=== PATIENT | male | born 1985 | race Caucasian/White ===

== ENCOUNTER 2021-12-02 09:24 | Outpatient (CLI) | payer BC, SELFPAY ==
--- NOTE | 2021-12-02 09:15 | CRLHL7_ITS ---
For Patients: As a result of the Century Cures Act, medical imaging exams and procedure reports are released immediately into your electronic medical record. You may view this report before your referring provider. If you have questions, please contact your health care provider. Technique: Double-contrast upper GI performed after the uneventful administration of effervescent crystals and thick barium followed by thin barium. Fluoroscopy time 1 minutes 45 seconds. Indication: Laryngeal-Pharyngeal Esophageal Reflux Comparison: None. Findings: Swallowing mechanism: Normal. Esophageal motility: Normal. Gastroesophageal reflux: None. Hernia: None. Esophagus, stomach and duodenal bulb mucosa: Normal mucosa. No stricture or mass. Impression: Normal double-contrast upper GI. Dictated by Kingston Grimes MD @ 12/02/2021 12:38:55 PM (Electronically Signed)
== END 2021-12-02 09:25 | disposition home or self-care (01) ==
LOC: RAD 09:26
PROVIDERS: PCP Surgery; Visit Provider Internal Medicine Gastroenterology
DX: K21.9 Gastro-esophageal reflux disease without esophagitis (principal); R07.0 Pain in throat
CPT/HCPCS: 74246